=== PATIENT | female | born 1990 | race Caucasian/White ===

== ENCOUNTER → 2017-01-26 | Outpatient (CLI) | payer OTHER ==
--- NOTE | 2017-01-27 07:26 | RAD ---
Lumbar spine, 3 views, 01/26/2017: History: Lumbar pain The vertebral heights and intervertebral disc spaces are well-maintained. No fracture or dislocation is identified. The paraspinous soft tissues are unremarkable. IMPRESSION: No significant abnormality is detected.
== END | disposition home or self-care (01) ==
LOC: RAD 17:21
PROVIDERS: ATTEND Nurse Practitioner Family
DX: M54.5 Low back pain (principal)
CPT/HCPCS: 72100

== ENCOUNTER → 2017-02-03 | Outpatient (CLI) | payer OTHER ==
--- NOTE | 2017-02-03 13:54 | RAD ---
Bilateral breast ultrasound History: Multiple bilateral palpable breast nodules. Comparison: None. Findings: Ultrasound imaging was performed of both breasts by orthopedic radiologic technologist around the clock face. No solid or cystic masses are identified. Normal breast parenchyma is seen. Impression: Unremarkable bilateral breast ultrasound. No solid or cystic masses are identified. Recommend following ACR guidelines regarding institution of screening mammography. If patient is of average risk, screening mammography can commence at 40 years of age. BI-RADS CATEGORY: 1 NEGATIVE RECOMMENDED FOLLOW-UP: CLIN FOLLOW UP IMAGING CLINICALLY INDICATED
== END | disposition home or self-care (01) ==
LOC: US 13:09
PROVIDERS: ATTEND Nurse Practitioner Family
DX: N63 Unspecified lump in breast (principal)
CPT/HCPCS: 76641

== ENCOUNTER 2017-11-01 18:58 | Emergency (ER) | payer OTHER ==
[~2017-11-01] VITALS: Ht 157.5 cm; Wt 107.5 kg
[2017-11-01 19:51] LABS: U PREG PATIENT NEGATIVE (NEG)
[2017-11-01 20:25] LABS: BASO # 0.1 x10^3/uL (0.0-0.2); BASO % 1 % (0-3); EOS # 0.6 x10^3/uL (0.0-0.7); EOS % 6 % (0-3); HEMATOCRIT 39.1 % (36.0-47.0); HEMOGLOBIN 12.4 g/dL (12.0-15.5); LYMPH # 3.9 x10^3/uL (1.0-4.8); LYMPH % 34 % (24-48); MEAN CORPUSCULAR HEMOGLOBIN 25 pg (25-35); MEAN CORPUSCULAR HGB CONC 32 g/dL (31-37); MEAN CORPUSCULAR VOLUME 78 fL (79-100); MONO # 0.8 x10^3/uL (0.0-1.1); MONO % 7 % (0-9); NEUT # 6.1 x10^3uL (1.8-7.7); NEUT % 53 % (31-73); PLATELET COUNT 342 x10^3/uL (140-400); RED BLOOD COUNT 5.02 x10^6/uL (3.50-5.40); RED CELL DISTRIBUTION WIDTH 16.5 % (11.5-14.5); WHITE BLOOD COUNT 11.4 x10^3/uL (4.0-11.0)
[2017-11-01 20:26] LABS: CALCIUM 8.8 mg/dL (8.5-10.1); CREATININE 0.7 mg/dL (0.6-1.0); POTASSIUM 3.7 mmol/L (3.5-5.1)
[2017-11-01 20:28] LABS: AMPHETAMINE/METHAMPHETAMINE NEG (NEG); BARBITURATES NEG (NEG); BENZODIAZEPINES NEG (NEG); CANNABINOIDS POS (NEG); COCAINE NEG (NEG); METHADONE NEG (NEG); OPIATES NEG (NEG); PHENCYCLIDINE NEG (NEG)
[2017-11-01] MEDS ORDERED: ONDANSETRON PF 4 MG/2 ML VIAL. ONE (20:41)
[2017-11-01] MEDS ORDERED: ONDANSETRON PF 4 MG/2 ML VIAL. IV ONE (20:45)
[2017-11-01] MEDS ORDERED: HYDROcodone/APAP 7.5/325MG 1 TAB TABLET PO ONE (20:45)
--- NOTE | 2017-11-01 21:31 | RAD ---
Exam performed: CT scan of the head without contrast. Date of Service: 11/01/2017. Comparison: None available. Clinical History: Seizure. Headache, pain and pressure behind right eye patient is at seizure for several years. Technique: Helical acquisitions are obtained from the foramen magnum to the vertex without intravenous administration of contrast. Findings: The ventricles are midline without evidence of dilatation. Normal mattson-white differentiation is maintained. There is no extra axial fluid collection, intraparenchymal hemorrhage or mass lesion. The visualized portions of the orbits, paranasal sinuses and the mastoid air cells appear clear. The calvarium is intact. Impression: 1. No acute intracranial process detected. PQRS Compliance Statement: One or more of the following individualized dose reduction techniques were utilized for this examination: 1. Automated exposure control 2. Adjustment of the mA and/or kV according to patient size 3. Use of iterative reconstruction technique Electronically signed by: Silvia Shetty MD (11/01/2017 9:28 PM) [facility]
[2017-11-01 21:40] VITALS: BP 112/74
--- NOTE | 2017-11-01 21:43 | PHYS DOC ---
General Chief Complaint: SEIZURE Stated Complaint: LUCILA Time Seen by MD: 20:03 Source: patient, family Exam Limitations: no limitations Problems: History of Present Illness Initial Comments Patient is a 26-year-old female who comes to the ED complaining of seizure. Patient states that she was at work and "felt a seizure coming on" having a mild headache and laid down. She states that after laying down she had a seizure and called her boyfriend to come get her who brought her to the ED and left. Seizure was unwitnessed the patient did not lose control of her bowels or bladder and she describes no postictal symptoms. She denies any injuries no pain complaints no intraoral injuries. In the emergency department on my evaluation she is in no apparent distress she is completely alert and oriented no postictal behavior, she complains of a global mild throbbing headache and denies any focal neuro deficits. She states that she has had seizures in the past and used to follow with a neurologist, she also states that she has no history of CT evaluation. Her ED vital signs are normal and labs are drawn, CT performed as the patient states she has no history of CT in the past. Patient states that she takes no antiepileptic medications and does not follow with a neurologist. Timing/Duration: 1/2 hour Severity: severe Modifying Factors: improves with other Associated Symptoms: headaches, seizure Allergies: Coded Allergies: No Known Drug Allergies (Unverified , 11/01/17) Past Medical History Medical History: other (anxiety, bipolar disorder, depression, seizure) Surgical History: noncontributory Social History Smoker: non-smoker Alcohol: occasionally Drugs: marijuana Review of Systems Constitutional: denies chills, denies diaphoresis, denies fever, denies malaise EENTM: denies eye pain, denies ear pain, denies ear discharge, denies nose pain , denies throat pain, denies mouth pain Respiratory: denies cough, denies shortness of breath Cardiovascular: denies chest pain, denies palpitations Gastrointestinal: denies abdominal pain, denies nausea, denies vomiting Musculoskeletal: denies back pain, denies joint swelling, denies neck pain Psychiatric/Neurological: see HPI Physical Exam General Appearance: no apparent distress Eyes: bilateral eye normal inspection, bilateral eye PERRL, bilateral eye EOMI Ear, Nose, Throat: hearing grossly normal, normal ENT inspection, normal pharynx Neck: non-tender, supple Respiratory: normal breath sounds, no respiratory distress Cardiovascular: normal peripheral pulses, regular rate, rhythm Gastrointestinal: non tender, soft Back: no CVA tenderness, no vertebral tenderness Extremities: non-tender, normal inspection 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 PHYSICIAN: ELIZABETH VALENCIA DO REASON: SEIZURE, PAIN AND PRESSURE BEHIND RIGHT EYE, HEADACHE PROCEDURE: CT HEAD WO CONTRAST Exam performed: CT scan of the head without contrast. Date of Service: 11/01/2017. Comparison: None available. Clinical History: Seizure. Headache, pain and pressure behind right eye patient is at seizure for several years. Technique: Helical acquisitions are obtained from the foramen magnum to the vertex without intravenous administration of contrast. Findings: The ventricles are midline without evidence of dilatation. Normal mattson-white differentiation is maintained. There is no extra axial fluid collection, intraparenchymal hemorrhage or mass lesion. The visualized portions of the orbits, paranasal sinuses and the mastoid air cells appear clear. The calvarium is intact. Impression: 1. No acute intracranial process detected. RS Compliance Statement: One or more of the following individualized dose reduction techniques were utilized for this examination: 1. Automated exposure control 2. Adjustment of the mA and/or kV according to patient size 3. Use of iterative reconstruction technique Electronically signed by: Silvia Shetty MD (11/01/2017 9:28 PM) [facility] DICTATED AND SIGNED BY: SILVIA SHETTY MD DATE: 11/01/172125 CC: IFEOMA MCGEE APRN; ELIZABETH VALENCIA DO ~ White blood cells 11.4, lactic acid 0.7, urine drug screen positive for marijuana I'm very skeptical that this patient actually had a seizure. Her lactic acid is normal, she retained continence and has had no postictal behavior. Seizure in question was unwitnessed and EMS was not called but her boyfriend brought her in. No one present in the emergency department for me to speak with him except for the patient and her mother who was not there. I advised the patient that it was unlikely she had a seizure however given her report I'm less advise she not drive or operate machinery, no swimming alone or other activity which could put her in a compromise if she had a seizure until she was cleared by doctor. I advised her to follow-up with her PCP this week for recheck and possible MRI of the brain/outpatient neurology referral. I discussed signs and symptoms of monitor as well as indications for urgent return to the department. Patient questions were answered and she was expressed agreement and understanding of the treatment plan Departure Time of Disposition: 21:41 Disposition: 01 HOME, SELF-CARE Diagnosis: questionable recurrent seizure Condition: GOOD Patient Instructions: Seizure, Adult, [id number] Additional Instructions: As discussed, it is undetermined whether you actually had a seizure today or not. It is recommended that he not drive or operate machinery nor swim alone until cleared by your doctor. Follow-up with Brandy Mcgee tomorrow for recheck and to schedule outpatient neurologic evaluation. Work excuse through November 03. Return to ED with new or changing symptoms. ELIZABETH VALENCIA DO Nov 01, 2017 21:43
== END 2017-11-01 21:49 | disposition home or self-care (01) ==
LOC: ER 18:58
DX: R56.9 Unspecified convulsions (principal); F31.9 Bipolar disorder, unspecified; F41.9 Anxiety disorder, unspecified; F12.10 Cannabis abuse, uncomplicated
CPT/HCPCS: 36415; 70450; 80048; 80307; 81025; 83605; 85025; 96374; 99285; J2405; G0479

== ENCOUNTER 2017-11-05 09:41 | Emergency (ER) | payer OTHER ==
[~2017-11-05] VITALS: Ht 157.5 cm; Wt 108.9 kg
[2017-11-05 10:12] LABS: ALBUMIN 3.7 g/dL (3.4-5.0); ALBUMIN/GLOBULIN RATIO 0.9 (1.0-1.7); CALCIUM 8.9 mg/dL (8.5-10.1); CREATININE 0.7 mg/dL (0.6-1.0); GFR 101.1; POTASSIUM 4.1 mmol/L (3.5-5.1); TOTAL BILIRUBIN 0.2 mg/dL (0.2-1.0); TOTAL PROTEIN 7.8 g/dL (6.4-8.2)
[2017-11-05 10:17] LABS: BASO # 0.1 x10^3/uL (0.0-0.2); BASO % 1 % (0-3); EOS # 0.4 x10^3/uL (0.0-0.7); EOS % 4 % (0-3); HEMATOCRIT 37.9 % (36.0-47.0); HEMOGLOBIN 12.2 g/dL (12.0-15.5); LYMPH # 2.7 x10^3/uL (1.0-4.8); LYMPH % 31 % (24-48); MEAN CORPUSCULAR HEMOGLOBIN 25 pg (25-35); MEAN CORPUSCULAR HGB CONC 32 g/dL (31-37); MEAN CORPUSCULAR VOLUME 78 fL (79-100); MONO # 0.6 x10^3/uL (0.0-1.1); MONO % 6 % (0-9); NEUT % 57 % (31-73); PLATELET COUNT 327 x10^3/uL (140-400); RED BLOOD COUNT 4.87 x10^6/uL (3.50-5.40); RED CELL DISTRIBUTION WIDTH 16.3 % (11.5-14.5); WHITE BLOOD COUNT 8.7 x10^3/uL (4.0-11.0)
[2017-11-05 10:26] LABS: BILIRUBIN,URINE NEG (NEG); CLARITY,URINE CLEAR; COLOR,URINE YELLOW; GLUCOSE,URINE NEG (NEG); NITRITE,URINE NEG (NEG); RBC,URINE RARE /HPF (0-2); UROBILINOGEN,URINE 0.2 mg/dL (0.2 mg/dL)
[2017-11-05 10:27] LABS: AMPHETAMINE/METHAMPHETAMINE NEG (NEG); BACTERIA,URINE FEW /HPF (0-FEW); BARBITURATES NEG (NEG); BENZODIAZEPINES NEG (NEG); CANNABINOIDS POS (NEG); COCAINE NEG (NEG); METHADONE NEG (NEG); OPIATES NEG (NEG); PHENCYCLIDINE NEG (NEG); SQUAMOUS EPITHELIAL CELL,UR FEW /LPF; WBC,URINE 0 /HPF (0-4)
[2017-11-05 10:30] LABS: U PREG PATIENT NEGATIVE (NEG)
--- NOTE | 2017-11-05 11:01 | PHYS DOC ---
Past History Past Medical History: Seizure Additional Past Medical Histor: pseudoseizure Past Surgical History: Smoking: Non-smoker Alcohol Use: Occasionally Drug Use: None Adult General Chief Complaint Chief Complaint: SEIZURE HPI HPI 27-year-old male patient with history of pseudoseizure brought in by EMS because 2 episodes of seizures since this morning. Patient states she had several episodes of seizure during her 2 years ago and diagnosed with pseudoseizure. Patient states she did not have any episodes of seizure for couple years but for the last 2 weeks she had episodes of seizure the same as she had during her . 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 School staff reported that she did not have real seizure and EMS reported the patient did not have any seizure at their arrival. Patient mother- in-law states she was weakness her last seizure that last about 30 seconds with loss of consciousness and rolling her eyes back and shaking on her hands when she was sitting on a wheelchair. Patient was alert and oriented times arrival to ER without postictal condition. Patient denies using drugs or alcohol and having stress recently. Review of Systems Review of Systems Constitutional: Denies fever or chills [] Eyes: Denies change in visual acuity, redness, or eye pain [] HENT: Denies nasal congestion or sore throat [] Respiratory: Denies cough or shortness of breath [] Cardiovascular: No additional information not addressed in HPI [] GI: Denies abdominal pain, nausea, vomiting, bloody stools or diarrhea [] : Denies dysuria or hematuria [] Musculoskeletal: Denies back pain or joint pain [] Integument: Denies rash or skin lesions [] Neurologic: Denies headache, focal weakness or sensory changes , reports seizure [] Endocrine: Denies polyuria or polydipsia [] All other systems were reviewed and found to be within normal limits, except as documented in this note. Allergies Allergies Allergies Coded Allergies Type Severity Reaction Last Updated Verified No Known Drug Allergies 11/01/17 No Physical Exam Physical Exam Constitutional: Well developed, well nourished, no acute distress, non-toxic appearance. [] HENT: Normocephalic, atraumatic, bilateral external ears normal, oropharynx moist, no oral exudates, nose normal. [] Eyes: PERRLA, EOMI, conjunctiva normal, no discharge. [] Neck: Normal range of motion, no tenderness, supple, no stridor. [] Cardiovascular:Heart rate regular rhythm, no murmur [] Lungs & Thorax: Bilateral breath sounds clear to auscultation [] Abdomen: Bowel sounds normal, soft, no tenderness, no masses, no pulsatile masses. [] Skin: Warm, dry, no erythema, no rash. [] Back: No tenderness, no CVA tenderness. [] Extremities: No tenderness, no cyanosis, no clubbing, ROM intact, no edema. [] Neurologic: Alert and oriented X 3, normal motor function, normal sensory function, no focal deficits noted. [] Psychologic: Affect normal, judgement normal, mood normal. [] Current Patient Data Vital Signs Vital Signs Date Time Temp Pulse Resp B/P (MAP) Pulse Ox O2 Delivery O2 Flow Rate FiO2 11/05/17 10:57 66 18 115/66 (82) 100 11/05/17 10:13 Room Air 11/05/17 09:49 98.5 Lab Results Laboratory Tests Test 11/05/17 09:45 11/05/17 10:07 11/05/17 10:12 White Blood Count 8.7 x10^3/uL (4.0-11.0) Red Blood Count 4.87 x10^6/uL (3.50-5.40) Hemoglobin 12.2 g/dL (12.0-15.5) Hematocrit 37.9 % (36.0-47.0) Mean Corpuscular Volume 78 fL (79-100) L Mean Corpuscular Hemoglobin 25 pg (25-35) Mean Corpuscular Hemoglobin Concent 32 g/dL (31-37) Red Cell Distribution Width 16.3 % (11.5-14.5) H Platelet Count 327 x10^3/uL (140-400) Neutrophils (%) (Auto) 57 % (31-73) Lymphocytes (%) (Auto) 31 % (24-48) Monocytes (%) (Auto) 6 % (0-9) Eosinophils (%) (Auto) 4 % (0-3) H Basophils (%) (Auto) 1 % (0-3) Neutrophils # (Auto) 5.0 x10^3uL (1.8-7.7) Lymphocytes # (Auto) 2.7 x10^3/uL (1.0-4.8) Monocytes # (Auto) 0.6 x10^3/uL (0.0-1.1) Eosinophils # (Auto) 0.4 x10^3/uL (0.0-0.7) Basophils # (Auto) 0.1 x10^3/uL (0.0-0.2) Sodium Level 140 mmol/L (136-145) Potassium Level 4.1 mmol/L (3.5-5.1) Chloride Level 105 mmol/L (98-107) Carbon Dioxide Level 28 mmol/L (21-32) Anion Gap 7 (6-14) Blood Urea Nitrogen 14 mg/dL (7-20) Creatinine 0.7 mg/dL (0.6-1.0) Estimated GFR (Cockcroft-Gault) 101.1 BUN/Creatinine Ratio 20 (6-20) Glucose Level 91 mg/dL (70-99) Calcium Level 8.9 mg/dL (8.5-10.1) Total Bilirubin 0.2 mg/dL (0.2-1.0) Aspartate Amino Transferase (AST) 12 U/L (15-37) L Alanine Aminotransferase (ALT) 20 U/L (14-59) Alkaline Phosphatase 83 U/L (46-116) Total Protein 7.8 g/dL (6.4-8.2) Albumin 3.7 g/dL (3.4-5.0) Albumin/Globulin Ratio 0.9 (1.0-1.7) L Urine Collection Type Unknown Urine Color Yellow Urine Clarity Clear Urine pH 5.5 Urine Specific Gypsy 1.020 Urine Protein Neg (NEG-TRACE) Urine Glucose (UA) Neg mg/dL (NEG) Urine Ketones (Stick) Neg mg/dL (NEG) Urine Blood Neg (NEG) Urine Nitrite Neg (NEG) Urine Bilirubin Neg (NEG) Urine Urobilinogen Dipstick 0.2 mg/dL (0.2 mg/dL) Urine Leukocyte Esterase Neg (NEG) Urine RBC Rare /HPF (0-2) Urine WBC 0 /HPF (0-4) Urine Squamous Epithelial Cells Few /LPF Urine Bacteria Few /HPF (0-FEW) Urine Mucus Slight /LPF Urine Test Negative (NEG) Urine Opiates Screen Neg (NEG) Urine Methadone Screen Neg (NEG) Urine Barbiturates Neg (NEG) Urine Phencyclidine Screen Neg (NEG) Urine Amphetamine/Methamphetamine Neg (NEG) Urine Benzodiazepines Screen Neg (NEG) Urine Cocaine Screen Neg (NEG) Urine Cannabinoids Screen Pos (NEG) Urine Ethyl Alcohol Neg (NEG) POC Urine HCG, Qualitative hcg negative (Negative) EKG EKG [] Radiology/Procedures Radiology/Procedures [] Course & Med Decision Making Course & Med Decision Making Pertinent Labs reviewed. (See chart for details) Evaluation of patient in ER showed 27-year-old female patient with history of seizures brought in by EMS because 2 episodes of pseudoseizure disorder morning. Patient had unremarkable physical exam with a postictal condition. Labs was unremarkable. Patient instructed to follow with her neurologist in 2 or 2 days for more evaluation. Patient currently doesn't take any antiepileptic medication. Dragon Disclaimer Dragon Disclaimer This electronic medical record was generated, in whole or in part, using a voice recognition dictation system. Departure Departure: Impression: Primary Impression: Pseudoseizure Disposition: HOME, SELF-CARE (at 1100) Condition: IMPROVED Referrals: IFEOMA HAM APRN (PCP) JODY OWENS MD Patient Instructions: Nonepileptic Seizures Additional Instructions: Follow-up with your neurologist in 2 or 3 days Return to ER if not getting better CHITO LOPEZ MD Nov 05, 2017 11:01
[2017-11-05 11:04] VITALS: BP 128/95
== END 2017-11-05 11:08 | disposition home or self-care (01) ==
LOC: ER 09:41
DX: F44.5 Conversion disorder with seizures or convulsions (principal)
CPT/HCPCS: 36415; 80053; 80307; 81001; 81025; 85025; 99284; G0479

== ENCOUNTER → 2017-12-24 | Outpatient (CLI) | payer OTHER ==
--- NOTE | 2017-12-24 14:24 | RAD ---
Chest, 2 views, 12/24/2017: History: Back pain There is a mild right convexity midthoracic scoliosis. The vertebral heights are well-maintained. No fracture or dislocation is identified. The paraspinous soft tissues are unremarkable. IMPRESSION: 1. Mild thoracic scoliosis. 2. No acute abnormality is detected.
== END | disposition home or self-care (01) ==
LOC: DXRAD 11:30
PROVIDERS: ATTEND Nurse Practitioner Family
DX: M41.84 Other forms of scoliosis, thoracic region (principal)
CPT/HCPCS: 72072

== ENCOUNTER 2018-01-13 16:39 | Emergency (ER) | payer OTHER ==
[~2018-01-13] VITALS: Ht 157.5 cm; Wt 107.5 kg
[2018-01-13] MEDS ORDERED: IV NORMAL SALINE 1,000ML 1,000 ML IV SCH (17:14)
[2018-01-13] MEDS ORDERED: diphenhydrAMINE 50 MG/ML VIAL IVP ONE (17:30)
[2018-01-13] MEDS ORDERED: PROCHLORPERAZINE 10 MG/2 ML VIAL. IV ONE (17:30)
[2018-01-13 17:33] LABS: BASO # 0.1 x10^3/uL (0.0-0.2); BASO % 1 % (0-3); EOS # 0.4 x10^3/uL (0.0-0.7); EOS % 4 % (0-3); HEMATOCRIT 38.5 % (36.0-47.0); HEMOGLOBIN 12.2 g/dL (12.0-15.5); LYMPH % 27 % (24-48); MEAN CORPUSCULAR HEMOGLOBIN 25 pg (25-35); MEAN CORPUSCULAR HGB CONC 32 g/dL (31-37); MEAN CORPUSCULAR VOLUME 78 fL (79-100); MONO # 0.7 x10^3/uL (0.0-1.1); MONO % 6 % (0-9); NEUT % 62 % (31-73); PLATELET COUNT 354 x10^3/uL (140-400); RED BLOOD COUNT 4.94 x10^6/uL (3.50-5.40); RED CELL DISTRIBUTION WIDTH 15.4 % (11.5-14.5); WHITE BLOOD COUNT 11.2 x10^3/uL (4.0-11.0)
[2018-01-13 17:39] LABS: CALCIUM 9.2 mg/dL (8.5-10.1); CREATININE 0.8 mg/dL (0.6-1.0); GFR 86.7; POTASSIUM 3.8 mmol/L (3.5-5.1)
--- NOTE | 2018-01-13 18:02 | PHYS DOC ---
Past History Past Medical History: Migraines, Seizure Additional Past Medical Histor: pseudoseizure Past Surgical History: Smoking: Non-smoker Alcohol Use: Occasionally Drug Use: None Adult General Chief Complaint Chief Complaint: HEADACHE HPI HPI Patient is a 27 year old female who presents with complaint of migraine headache. Patient states her symptoms have been present over the past 2 days. Patient has history of seizure disorder and follows with Dr. Lara of neurology. The patient was instructed to come to the emergency department for evaluation due to her migraine headache. Patient states that she has not taken any medications for her symptoms. Patient states that the symptoms are typical with previous migraine headaches. Patient denies any fever. Patient does have photosensitivity and nausea associated with symptoms. Patient denies any focal neurologic deficits. Review of Systems Review of Systems Constitutional: Denies fever or chills [] Eyes: Denies change in visual acuity, redness, or eye pain [] HENT: Denies nasal congestion or sore throat [] Respiratory: Denies cough or shortness of breath [] Cardiovascular: Denies chest pain or edema[] GI: Nausea, denies abdominal pain, vomiting, bloody stools or diarrhea [] : Denies dysuria or hematuria [] Musculoskeletal: Denies back pain or joint pain [] Integument: Denies rash or skin lesions [] Neurologic: Headache, photophobia, denies focal weakness or sensory changes [] All other systems were reviewed and found to be within normal limits, except as documented in this note. Current Medications Current Medications Current Medications Medications (Trade) Dose Ordered Sig/Jenni Start Time Stop Time Status Last Admin Dose Admin Diphenhydramine HCl (Benadryl) 25 mg 1X ONCE 01/13/18 17:30 01/13/18 17:31 DC 01/13/18 17:26 25 MG Fentanyl Citrate (Fentanyl 2ml Vial) 50 mcg 1X ONCE 01/13/18 17:30 01/13/18 17:31 DC 01/13/18 17:26 50 MCG Prochlorperazine Edisylate (Compazine) 10 mg 1X ONCE 01/13/18 17:30 01/13/18 17:31 DC 01/13/18 17:26 10 MG Sodium Chloride 1,000 ml @ 1,000 mls/hr Q1H 01/13/18 17:14 4/5/18 18:13 01/13/18 17:26 1,000 MLS/HR Allergies Allergies Allergies Coded Allergies Type Severity Reaction Last Updated Verified No Known Drug Allergies 11/01/17 No Physical Exam Physical Exam Constitutional: Alert, afebrile, appears in moderate discomfort. [] HENT: Normocephalic, atraumatic, bilateral external ears normal, oropharynx moist, no oral exudates, nose normal. [] Eyes: PERRLA, EOMI, photophobia present, conjunctiva normal, no discharge. [] Neck: Normal range of motion, no tenderness, supple, no stridor. [] Cardiovascular:Heart rate regular rhythm, no murmur [] Lungs & Thorax: Bilateral breath sounds clear to auscultation [] Abdomen: Bowel sounds normal, soft, no tenderness, no masses, no pulsatile masses. [] Skin: Warm, dry, no erythema, no rash. [] Back: No tenderness, no CVA tenderness. [] Extremities: No tenderness, no cyanosis, no clubbing, ROM intact, no edema. [] Neurologic: Alert and oriented X 3, normal motor function, normal sensory function, no focal deficits noted. [] Current Patient Data Vital Signs Vital Signs Date Time Temp Pulse Resp B/P (MAP) Pulse Ox O2 Delivery O2 Flow Rate FiO2 01/13/18 17:50 63 18 121/67 (85) 98 Room Air 01/13/18 16:49 98.1 Lab Results Laboratory Tests Test 01/13/18 17:19 White Blood Count 11.2 x10^3/uL (4.0-11.0) H Red Blood Count 4.94 x10^6/uL (3.50-5.40) Hemoglobin 12.2 g/dL (12.0-15.5) Hematocrit 38.5 % (36.0-47.0) Mean Corpuscular Volume 78 fL (79-100) L Mean Corpuscular Hemoglobin 25 pg (25-35) Mean Corpuscular Hemoglobin Concent 32 g/dL (31-37) Red Cell Distribution Width 15.4 % (11.5-14.5) H Platelet Count 354 x10^3/uL (140-400) Neutrophils (%) (Auto) 62 % (31-73) Lymphocytes (%) (Auto) 27 % (24-48) Monocytes (%) (Auto) 6 % (0-9) Eosinophils (%) (Auto) 4 % (0-3) H Basophils (%) (Auto) 1 % (0-3) Neutrophils # (Auto) 7.0 x10^3uL (1.8-7.7) Lymphocytes # (Auto) 3.0 x10^3/uL (1.0-4.8) Monocytes # (Auto) 0.7 x10^3/uL (0.0-1.1) Eosinophils # (Auto) 0.4 x10^3/uL (0.0-0.7) Basophils # (Auto) 0.1 x10^3/uL (0.0-0.2) Sodium Level 141 mmol/L (136-145) Potassium Level 3.8 mmol/L (3.5-5.1) Chloride Level 103 mmol/L (98-107) Carbon Dioxide Level 28 mmol/L (21-32) Anion Gap 10 (6-14) Blood Urea Nitrogen 14 mg/dL (7-20) Creatinine 0.8 mg/dL (0.6-1.0) Estimated GFR (Cockcroft-Gault) 86.7 Glucose Level 84 mg/dL (70-99) Calcium Level 9.2 mg/dL (8.5-10.1) Magnesium Level 2.0 mg/dL (1.8-2.4) EKG EKG Not performed[] Radiology/Procedures Radiology/Procedures Not performed[] Course & Med Decision Making Course & Med Decision Making Pertinent Labs and Imaging studies reviewed. (See chart for details) Patient was given IV fluids, Compazine, Benadryl, and IV fentanyl. At time of sign out, lab work pending. Patient does report improvement in symptoms. Patient care was signed out to Dr. Weeks at 181. TALISHA Pan attending note Dr. Bubba Weeks. Care assumed by me at [address] Goncalves. On reevaluation at 1950 patient well-appearing smiling and comfortable. Full neurologic exam is completely benign. Supple neck. No further workup or treatment is indicated patient and family agree with outpatient follow-up and strict return precautions given Dragon Disclaimer Dragon Disclaimer This electronic medical record was generated, in whole or in part, using a voice recognition dictation system. Departure Departure: Impression: Primary Impression: Migraine Disposition: HOME, SELF-CARE Condition: GOOD Referrals: IFEOMA HAM APRN (PCP) Patient Instructions: Migraine Headache Additional Instructions: You've been suffering from migraine headache. Rest and drink plenty of fluids. Take ibuprofen 800 mg every 6 hours and Tylenol every 4 hours as needed for any continued discomfort. Follow-up with your doctor tomorrow and return immediately for new severe, or worsening symptoms ESA GONCALVES MD Jan 13, 2018 18:02 BUBBA WEEKS MD Jan 13, 2018 19:55
[2018-01-13 18:55] LABS: AMPHETAMINE/METHAMPHETAMINE NEG (NEG); BARBITURATES NEG (NEG); BENZODIAZEPINES NEG (NEG); CANNABINOIDS POS (NEG); COCAINE NEG (NEG); METHADONE NEG (NEG); OPIATES NEG (NEG); PHENCYCLIDINE NEG (NEG)
[2018-01-13 19:02] LABS: CLARITY,URINE CLEAR; COLOR,URINE YELLOW; GLUCOSE,URINE NEG (NEG)
[2018-01-13 19:03] LABS: BACTERIA,URINE 0 /HPF (0-FEW); BILIRUBIN,URINE NEG (NEG); NITRITE,URINE NEG (NEG); RBC,URINE RARE /HPF (0-2); SQUAMOUS EPITHELIAL CELL,UR FEW /LPF; UROBILINOGEN,URINE 0.2 mg/dL (0.2 mg/dL); WBC,URINE OCC /HPF (0-4)
[2018-01-13 20:09] VITALS: BP 121/78
== END 2018-01-13 20:10 | disposition home or self-care (01) ==
LOC: ER 16:39
DX: G43.909 Migraine, unspecified, not intractable, without status migrainosus (principal); G40.909 Epilepsy, unspecified, not intractable, without status epilepticus
CPT/HCPCS: 36415; 80048; 80307; 81001; 81025; 83735; 85025; 96361; 96374; 96375; 99284; J0780; J1200; J3010; G0479; J7030

== ENCOUNTER 2018-02-23 19:15 | Inpatient (IN) | payer OTHER ==
[~2018-02-23] VITALS: Ht 170.2 cm; Wt 109.8 kg
[2018-02-23] MEDS ORDERED: IV NORMAL SALINE 1,000ML 1,000 ML IV SCH (19:19)
--- NOTE | 2018-02-23 19:39 | EKG ---
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
[2018-02-23 19:52] LABS: BASO # 0.1 x10^3/uL (0.0-0.2); BASO % 1 % (0-3); EOS # 0.3 x10^3/uL (0.0-0.7); EOS % 3 % (0-3); HEMOGLOBIN 12.4 g/dL (12.0-15.5); LYMPH # 2.9 x10^3/uL (1.0-4.8); LYMPH % 29 % (24-48); MEAN CORPUSCULAR HEMOGLOBIN 25 pg (25-35); MEAN CORPUSCULAR HGB CONC 33 g/dL (31-37); MEAN CORPUSCULAR VOLUME 78 fL (79-100); MONO # 0.8 x10^3/uL (0.0-1.1); MONO % 8 % (0-9); NEUT # 5.9 x10^3uL (1.8-7.7); NEUT % 59 % (31-73); PLATELET COUNT 353 x10^3/uL (140-400); RED CELL DISTRIBUTION WIDTH 15.6 % (11.5-14.5)
[2018-02-23 20:02] LABS: AMPHETAMINE/METHAMPHETAMINE NEG (NEG); BARBITURATES NEG (NEG); BENZODIAZEPINES NEG (NEG); CANNABINOIDS POS (NEG); COCAINE NEG (NEG); METHADONE NEG (NEG); OPIATES POS (NEG); PHENCYCLIDINE NEG (NEG)
[2018-02-23 20:05] LABS: ALBUMIN 3.8 g/dL (3.4-5.0); CALCIUM 8.6 mg/dL (8.5-10.1); CREATININE 0.9 mg/dL (0.6-1.0); DIRECT BILIRUBIN 0.1 mg/dL (0.0-0.2); GFR 75.7; POTASSIUM 3.3 mmol/L (3.5-5.1); TOTAL PROTEIN 7.8 g/dL (6.4-8.2)
[2018-02-23 20:07] LABS: ACETAMIN 13.8 mcg/mL (10-30); SALIC 2.3 mg/dL (2.8-20.0)
--- NOTE | 2018-02-23 20:16 | PHYS DOC ---
Past History Past Medical History: Anxiety, Migraines, Seizure Additional Past Medical Histor: pseudoseizure Past Surgical History: Smoking: Non-smoker Alcohol Use: Occasionally Drug Use: Marijuana Social History Narrative: Marijuana in last 48 hours Adult General Chief Complaint Chief Complaint: OVERDOSE HPI HPI Patient is a 27 year old female who presents with complaint of intentional drug overdose area patient states that she took approximately #30 fluoxetine tablets and #5 [place]-5 tablets approximately 1 hour prior to arrival and attempt to try to kill herself. Patient states she is currently suffering from depression and is still having suicidal thoughts. Patient states that currently she feels very sleepy but denies any other symptoms at this time. Patient brought to the emergency department by EMS after family discovered what she had done and called 911. The patient states that she is wanting to seek help for her depression. Patient denies any pain or other discomfort. Review of Systems Review of Systems Constitutional: Lethargy, denies fever or chills [] Eyes: Denies change in visual acuity, redness, or eye pain [] HENT: Denies nasal congestion or sore throat [] Respiratory: Denies cough or shortness of breath [] Cardiovascular: Denies chest pain or edema[] GI: Denies abdominal pain, nausea, vomiting, bloody stools or diarrhea [] : Denies dysuria or hematuria [] Musculoskeletal: Denies back pain or joint pain [] Integument: Denies rash or skin lesions [] Neurologic: Denies headache, focal weakness or sensory changes [] All other systems were reviewed and found to be within normal limits, except as documented in this note. Current Medications Current Medications Current Medications Medications (Trade) Dose Ordered Sig/Jenni Start Time Stop Time Status Last Admin Dose Admin Sodium Chloride 1,000 ml @ 1,000 mls/hr Q1H 02/23/18 19:19 02/23/18 20:18 02/23/18 20:03 1,000 MLS/HR Allergies Allergies Allergies Coded Allergies Type Severity Reaction Last Updated Verified No Known Drug Allergies 11/01/17 No Physical Exam Physical Exam Constitutional: Drowsy, afebrile, no acute distress. [] HENT: Normocephalic, atraumatic, bilateral external ears normal, oropharynx moist, no oral exudates, nose normal. [] Eyes: PERRLA, EOMI, conjunctiva normal, no discharge. [] Neck: Normal range of motion, no tenderness, supple, no stridor. [] Cardiovascular:Heart rate regular rhythm, no murmur [] Lungs & Thorax: Bilateral breath sounds clear to auscultation [] Abdomen: Bowel sounds normal, soft, no tenderness, no masses, no pulsatile masses. [] Skin: Warm, dry, no erythema, no rash. [] Back: No tenderness, no CVA tenderness. [] Extremities: No tenderness, no cyanosis, no clubbing, ROM intact, no edema. [] Neurologic: Delayed verbal responses, oriented 3, normal motor function, normal sensory function, no focal deficits noted. [] Psychologic: Affect flat, judgement normal, mood depressed. [] Current Patient Data Vital Signs Vital Signs Date Time Temp Pulse Resp B/P (MAP) Pulse Ox O2 Delivery O2 Flow Rate FiO2 02/23/18 19:17 98.7 77 18 99 Room Air Lab Results Laboratory Tests Test 02/23/18 19:25 02/23/18 19:40 White Blood Count 10.0 x10^3/uL (4.0-11.0) Red Blood Count 4.90 x10^6/uL (3.50-5.40) Hemoglobin 12.4 g/dL (12.0-15.5) Hematocrit 38.0 % (36.0-47.0) Mean Corpuscular Volume 78 fL (79-100) L Mean Corpuscular Hemoglobin 25 pg (25-35) Mean Corpuscular Hemoglobin Concent 33 g/dL (31-37) Red Cell Distribution Width 15.6 % (11.5-14.5) H Platelet Count 353 x10^3/uL (140-400) Neutrophils (%) (Auto) 59 % (31-73) Lymphocytes (%) (Auto) 29 % (24-48) Monocytes (%) (Auto) 8 % (0-9) Eosinophils (%) (Auto) 3 % (0-3) Basophils (%) (Auto) 1 % (0-3) Neutrophils # (Auto) 5.9 x10^3uL (1.8-7.7) Lymphocytes # (Auto) 2.9 x10^3/uL (1.0-4.8) Monocytes # (Auto) 0.8 x10^3/uL (0.0-1.1) Eosinophils # (Auto) 0.3 x10^3/uL (0.0-0.7) Basophils # (Auto) 0.1 x10^3/uL (0.0-0.2) Sodium Level 141 mmol/L (136-145) Potassium Level 3.3 mmol/L (3.5-5.1) L Chloride Level 103 mmol/L (98-107) Carbon Dioxide Level 26 mmol/L (21-32) Anion Gap 12 (6-14) Blood Urea Nitrogen 14 mg/dL (7-20) Creatinine 0.9 mg/dL (0.6-1.0) Estimated GFR (Cockcroft-Gault) 75.7 Glucose Level 123 mg/dL (70-99) H Calcium Level 8.6 mg/dL (8.5-10.1) Magnesium Level 2.0 mg/dL (1.8-2.4) Total Bilirubin Pending Direct Bilirubin 0.1 mg/dL (0.0-0.2) Aspartate Amino Transferase (AST) 13 U/L (15-37) L Alanine Aminotransferase (ALT) 23 U/L (14-59) Alkaline Phosphatase 89 U/L (46-116) Total Protein 7.8 g/dL (6.4-8.2) Albumin 3.8 g/dL (3.4-5.0) Salicylates Level 2.3 mg/dL (2.8-20.0) L Salicylate Last Dose Date 02/23/18 Salicylate Last Dose Time 1800 Acetaminophen Level 13.8 mcg/mL (10-30) Acetaminophen Last Dose Date 02/23/18 Acetaminophen Last Dose Time 1800 Ethyl Alcohol Level < 10 mg/dL (0-10) Urine Opiates Screen Pos (NEG) Urine Methadone Screen Neg (NEG) Urine Barbiturates Neg (NEG) Urine Phencyclidine Screen Neg (NEG) Urine Amphetamine/Methamphetamine Neg (NEG) Urine Benzodiazepines Screen Neg (NEG) Urine Cocaine Screen Neg (NEG) Urine Cannabinoids Screen Pos (NEG) Urine Ethyl Alcohol Neg (NEG) EKG EKG Interpreted by me: Heart rate 70, sinus rhythm, normal intervals, normal axis, no acute ST/T-wave abnormalities present[] Radiology/Procedures Radiology/Procedures Not performed[] Course & Med Decision Making Course & Med Decision Making Pertinent Labs and Imaging studies reviewed. (See chart for details) Poison control was contacted upon arrival to the emergency department. They recommended serial EKGs every 2 hours over the next 10 hours on the patient, a 4 hour Tylenol level, and supportive care at this time. The patient will be admitted for medical clearance from her potential toxic ingestion. I spoke with Dr. Mondragon who accepted care patient in hospital. Dragon Disclaimer Dragon Disclaimer This electronic medical record was generated, in whole or in part, using a voice recognition dictation system. Departure Departure: Impression: Primary Impression: Intentional drug overdose Additional Impression: Suicidal ideation Disposition: ADMITTED INPATIENT Admitting Physician: Albert Mondragon Condition: GUARDED Referrals: IFEOMA HAM APRN (PCP) Problem Qualifiers Primary Impression: Intentional drug overdose Encounter type: initial encounter Qualified Codes: T50.902A - Poisoning by unspecified drugs, medicaments and biological substances, intentional self-harm , initial encounter ESA GONCALVES MD February 23, 2018 20:16
[2018-02-23 20:29] LABS: BACTERIA,URINE 0 /HPF (0-FEW); BILIRUBIN,URINE NEG (NEG); CLARITY,URINE HAZY; COLOR,URINE YELLOW; GLUCOSE,URINE NEG (NEG); NITRITE,URINE NEG (NEG); SQUAMOUS EPITHELIAL CELL,UR MOD /LPF; UROBILINOGEN,URINE 0.2 mg/dL (0.2 mg/dL)
[2018-02-23 20:30] LABS: HYALINE CASTS, URINE FEW /HPF
[2018-02-23 20:33] LABS: U PREG PATIENT NEGATIVE (NEG)
[2018-02-23 20:38] LABS: TOTAL BILIRUBIN 0.2 mg/dL (0.2-1.0)
[2018-02-23] MEDS ORDERED: ONDANSETRON PF 4 MG/2 ML VIAL. IV PRN (21:15)
[2018-02-23 22:15] VITALS: BP 134/78
--- NOTE | 2018-02-23 22:18 | EKG ---
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
[2018-02-23] MEDS: IV NORMAL SALINE 1,000ML 1,000 ML IV SCH (22:40)
[2018-02-23 22:46] LABS: ACETAMIN 8.3 mcg/mL (10-30)
[2018-02-23 23:00] VITALS: BP 123/64
[2018-02-24] VITALS (17 sets, daily range): BP systolic 107–146; BP diastolic 54–83
[2018-02-24] MEDS ORDERED: HYDR-971 PO (00:19)
[2018-02-24] MEDS ORDERED: CYCL-331 PO (00:19)
[2018-02-24] MEDS ORDERED: FLUO40CA2 PO (00:19)
--- NOTE | 2018-02-24 06:05 | EKG ---
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
[2018-02-24 06:39] LABS: BASO # 0.1 x10^3/uL (0.0-0.2); BASO % 1 % (0-3); EOS # 0.3 x10^3/uL (0.0-0.7); EOS % 4 % (0-3); HEMATOCRIT 35.8 % (36.0-47.0); HEMOGLOBIN 11.6 g/dL (12.0-15.5); LYMPH # 3.5 x10^3/uL (1.0-4.8); LYMPH % 40 % (24-48); MEAN CORPUSCULAR HEMOGLOBIN 25 pg (25-35); MEAN CORPUSCULAR HGB CONC 32 g/dL (31-37); MEAN CORPUSCULAR VOLUME 78 fL (79-100); MONO # 0.7 x10^3/uL (0.0-1.1); MONO % 8 % (0-9); NEUT # 4.2 x10^3uL (1.8-7.7); NEUT % 47 % (31-73); PLATELET COUNT 328 x10^3/uL (140-400); RED BLOOD COUNT 4.57 x10^6/uL (3.50-5.40); RED CELL DISTRIBUTION WIDTH 15.9 % (11.5-14.5); WHITE BLOOD COUNT 8.8 x10^3/uL (4.0-11.0)
[2018-02-24 06:52] LABS: CALCIUM 8.2 mg/dL (8.5-10.1); CREATININE 0.7 mg/dL (0.6-1.0); GFR 101.1; POTASSIUM 4.1 mmol/L (3.5-5.1)
[2018-02-24 07:16] LABS: ACETAMIN < 2 mcg/mL (10-30)
[2018-02-24] MEDS: IV NORMAL SALINE 1,000ML 1,000 ML IV SCH ×2 (09:01→18:40)
[2018-02-24] MEDS: ONDANSETRON ODT 4 MG TAB.RAPDIS PO PRN (19:09)
--- NOTE | 2018-02-24 19:39 | HP ---
ADMIT DATE: 02/23/2018 HISTORY OF PRESENT ILLNESS: The patient is a 27-year-old female patient who presented to the Emergency Room with a complaint of intentional drug overdose. The patient stated that she took approximately 30 fluoxetine tablets and five [place] 5 mg approximately an hour before arrival, an attempt to try to kill herself. The patient stated that she is currently suffering from depression and is still having suicidal thoughts. The patient states that currently, she feels very sleepy, but denies any other symptoms at the time. She was brought to the Emergency Room by EMS after family discovered what she had done and called 911. The patient stated that she is wanting to seek help for her depression, but denied any pain or other discomfort. PAST MEDICAL HISTORY: Significant for anxiety, migraine headache, and seizures as well as pseudoseizures. PAST SURGICAL HISTORY: Significant for . The Poison Control Center was contacted and their recommendation was to admit her, to do serial EKGs to make sure that there is no evidence of prolongation of QT interval. FAMILY HISTORY: Unremarkable. SOCIAL HISTORY: She does not smoke, drinks alcohol occasionally, and used marijuana in the last 48 hours. PHYSICAL EXAMINATION: GENERAL: On arrival to the Emergency Room, the patient looked well and was clearly in no apparent respiratory distress, no pallor, jaundice, cyanosis, or thyromegaly. No jugular venous distension. No lower limb edema. VITAL SIGNS: Her heart rate was 77, blood pressure was 134/78, temperature was 98.2, respiratory rate was 18 and oxygen saturation was 99%. HEAD, EYES, EARS, NOSE, AND THROAT: Showed normocephalic, atraumatic. NECK: Supple. HEART: Showed normal first and second heart sounds. No gallop, rub or murmur. CHEST: Clear to auscultation. No crepitation or rhonchi. ABDOMEN: Distended, soft, and nontender. No guarding or rigidity. No organomegaly. Hernial orifice intact. Bowel sounds normal. NEUROLOGIC: She is awake, alert, responding appropriately. Cranial nerves intact. EXTREMITIES: She moves extremities without difficulty. PSYCHOLOGICAL: Her affect is flat. Judgment was normal. Her mood was depressed. LABORATORY DATA: While in the Emergency Room, she has had lab work done, which showed that her white cell count was 10,000, hemoglobin 12.4, hematocrit 38, MCV 78, and platelet count of 353,000. Her chemistry showed a serum sodium 141, potassium 3.3, chloride 103, bicarbonate 26, anion gap 12, BUN 14, creatinine 0.9, estimated GFR was 75.7 mL per minute. Her glucose 123, calcium was 8.6, magnesium 2. Total bilirubin, AST, ALT, alkaline phosphatase were normal. Her total protein was 7.8, albumin was 3.8. Urinalysis was essentially unremarkable. Urine test was negative. Toxic screen showed that her acetaminophen was high at 13.8; however, the four-hour value was down to 8.3. Toxic screen was positive for opiates and cannabinoids. ASSESSMENT AND PLAN: The patient was admitted to the Intensive Care Unit with the following diagnoses, intentional drug overdose, suicidal ideation. Once she is medically stable, we will get the [facility] to be screened to see whether she can be discharged safely home or needs an inpatient psychiatric stabilization. CELIA GOMES MD DR: FRANCK/cassie JOB#: [id number] / [id number]
--- NOTE | 2018-02-24 23:44 | PN ---
DATE: 02/24/2018 SUBJECTIVE: The patient is sitting comfortably in bed in no apparent respiratory distress. Denied any complaint. We [facility] who screened her and recommended inpatient psychiatric stabilization. OBJECTIVE: GENERAL: On examining her, she looked well and was clearly in no apparent respiratory distress, pale, but no jaundice, cyanosis, or thyromegaly. No jugular venous distension. No lower limb edema. VITAL SIGNS: Her heart rate was 60, blood pressure was 116/67, temperature was 98, respiratory rate was 16, and oxygen saturation was 97% on room air. The rest of clinical exam is stable, has not really changed. LABORATORY DATA: Her white cell count was 8800, hemoglobin 11.6, hematocrit 35.8, MCV 78, and platelet count of 328,000. Her chemistry showed a serum sodium 141, potassium 4.1, chloride 106, bicarbonate 28, anion gap of 7, BUN 9, creatinine 0.7, estimated GFR was 101, glucose 93, and calcium was 8.2. ASSESSMENT: Intentional overdose, the [facility] screened the patient and recommended inpatient psychiatric stabilization. Paper work was sent to [facility] and we will discharge her once she is accepted. CELIA GOMES MD DR: FRANCK/cassie JOB#: [id number] / [id number]
[2018-02-25] VITALS (17 sets, daily range): BP systolic 101–142; BP diastolic 51–85
[2018-02-25] MEDS: IV NORMAL SALINE 1,000ML 1,000 ML IV SCH ×2 (04:20→16:05)
[2018-02-25] MEDS: ONDANSETRON ODT 4 MG TAB.RAPDIS PO PRN (12:52)
[2018-02-25] MEDS ORDERED: ALPRAZolam 0.25 MG TABLET PO PRN (15:15)
--- NOTE | 2018-02-25 20:46 | DS ---
DATE OF DISCHARGE: 02/25/2018 HOSPITAL COURSE: The patient is a 27-year-old female patient, who came to the Emergency Room and was admitted with intentional drug overdose, suicidal ideation and [facility] was consulted and came and screened her for inpatient psychiatric stabilization. Unfortunately, this is a voluntary decision and we have been attempting to find a place for her in multiple places including [facility] and none of these units have beds available and the patient, herself expressed her unwillingness to go voluntarily and therefore a decision was made to discharge her home to follow with the [facility] on Wednesday. I am not really familiar with the legal system, but according to our rn social services as long as she refuses involuntary commitment she has right to live and therefore given difficulty in placing her and unwillingness to go for entirely, a decision was made to discharge her today. PHYSICAL EXAMINATION: GENERAL: When I saw her this afternoon, she looked well and was clearly in no apparent respiratory distress. She was pale. There is no pallor, jaundice, cyanosis, or thyromegaly. No jugular venous distension. No lower limb edema. VITAL SIGNS: Her heart rate was 64, blood pressure 142/70, temperature 98.1, respiratory rate 20, and oxygen saturation was 98%. HEAD, EYES, EARS, NOSE AND THROAT: Normocephalic, atraumatic. NECK: Supple. HEART: Showed normal first and second heart sounds with no gallop, rub or murmur. CHEST: Clear to auscultation. No crepitation or rhonchi. ABDOMEN: Distended, soft, nontender. No guarding or rigidity. No organomegaly. All hernial orifice intact. Bowel sounds normal. NEUROLOGIC: She was awake, alert, responding appropriately. Cranial nerves intact. EXTREMITIES: She moves extremities without difficulty. She ambulates without assistance or assistive devices. LABORATORY DATA: Showed white cell count of 8800, hemoglobin 12, hematocrit 36, MCV 78 and platelet count of 328,000. Her serum sodium 141, potassium 4.1, chloride 106, bicarbonate 28, anion gap of 7, BUN 9, creatinine 0.7, estimated GFR was 101, glucose 93 and calcium was 8.2. DISCHARGE MEDICATIONS: She was discharged to continue on her Flexeril, fluoxetine, and hydrocodone. Although according to her therefore she was advised to not to take any of these medications until go to [facility] on Wednesday on Wednesday morning. CELIA GOMES MD DR: FRANCK/cassie JOB#: [id number] / [id number]
== END 2018-02-25 19:56 | disposition home or self-care (01) | DRG 918 ==
LOC: ER 19:15 → ICU 20:59
PROVIDERS: ADMIT Internal Medicine; ATTEND Internal Medicine
DX: T43.222A Poisoning by selective serotonin reuptake inhibitors, intentional self-harm, initial encounter (principal); F32.9 Major depressive disorder, single episode, unspecified; F41.9 Anxiety disorder, unspecified; G43.909 Migraine, unspecified, not intractable, without status migrainosus; Y92.89 Other specified places as the place of occurrence of the external cause
CPT/HCPCS: 36415; 80048; 80076; 80307; 81001; 81025; 83735; 85025; 87086; 87641; 93005; 96360; G0480; J2405; Q0162; 99285-25; G0479; J7030

== ENCOUNTER 2021-04-26 14:52 | Emergency (ER) | payer OTHER ==
[~2021-04-26] VITALS: Ht 157.5 cm; Wt 130.6 kg
[~2021-04-26 14:52] MED LIST: CYCL-331 PO; FLUO40CA2 PO; HYDR-3165 PO
[2021-04-26 15:05] VITALS: BP 120/60
--- NOTE | 2021-04-26 15:26 | PHYS DOC ---
Past History Past Medical History: Anxiety, Migraines, Seizure Additional Past Medical Histor: pseudoseizure Past Surgical History: Smoking: Non-smoker Alcohol Use: Occasionally Drug Use: Marijuana General Adult EDM: Chief Complaint: ANKLE PROBLEM HPI: HPI: 30-year-old female presents with right lateral ankle pain. The patient hurt her ankle over a week ago. She was walking around in "crocs" and as she walked, her foot rotated medially. She presents today because she still has swelling and pain. She wants to make sure is not broken. She has been able to walk but it is painful. She denies any other injuries or complaints at this time. Review of Systems: Review of Systems: Constitutional: Denies fever or chills Eyes: Denies change in visual acuity HENT: Denies nasal congestion or sore throat Respiratory: Denies cough or shortness of breath Cardiovascular: Denies chest pain or edema GI: Denies abdominal pain, nausea, vomiting, bloody stools or diarrhea : Denies dysuria Musculoskeletal: Right ankle pain Integument: Denies rash Neurologic: Denies headache, focal weakness or sensory changes Endocrine: Denies polyuria or polydipsia Lymphatic: Denies swollen glands Psychiatric: Denies depression or anxiety Allergies: Allergies: Allergies Coded Allergies Type Severity Reaction Last Updated Verified No Known Drug Allergies 11/01/17 No Physical Exam: PE: Constitutional: Well developed, well nourished, morbidly obese, no acute distress, non-toxic appearance. [] HENT: Normocephalic, atraumatic, bilateral external ears normal, oropharynx moist, no oral exudates, nose normal. [] Eyes: PERRLA, EOMI, conjunctiva normal, no discharge. [] Neck: Normal range of motion, no tenderness, supple, no stridor. [] Cardiovascular:Heart rate regular rhythm, no murmur [] Lungs & Thorax: Bilateral breath sounds clear to auscultation [] Abdomen: Bowel sounds normal, soft, no tenderness, no masses, no pulsatile masses. [] Skin: Warm, dry, no erythema, no rash. [] Back: No tenderness, no CVA tenderness. [] Extremities: Tenderness of the right lateral ankle inferior to the lateral malleolus and anterior to the lateral malleolus. Mild swelling. [] Neurologic: Alert and oriented X 3, normal motor function, normal sensory function, no focal deficits noted. [] Psychologic: Affect normal, judgement normal, mood normal. [] Current Patient Data: Vital Signs: Vital Signs Date Time Temp Pulse Resp B/P (MAP) Pulse Ox O2 Delivery O2 Flow Rate FiO2 04/26/21 15:05 97.9 71 20 120/60 96 Room Air EKG: EKG: [] Radiology/Procedures: Radiology/Procedures: [] Heart Score: C/O Chest Pain: N/A Risk Factors: Risk Factors: DM, Current or recent (<one month) smoker, HTN, HLP, family history of CAD, obesity. Risk Scores: Score 0 - 3: 2.5% MACE over next 6 weeks - Discharge Home Score 4 - 6: 20.3% MACE over next 6 weeks - Admit for Clinical Observation Score 7 - 10: 72.7% MACE over next 6 weeks - Early Invasive Strategies Course & Med Decision Making: Course & Med Decision Making Pertinent Labs and Imaging studies reviewed. (See chart for details) The patient's x-ray is negative for fracture. We will place her in a stirrup splint. She is stable for discharge at this time. [] Dragon Disclaimer: Dragon Disclaimer: This electronic medical record was generated, in whole or in part, using a voice recognition dictation system. Departure Departure: Impression: Primary Impression: Severe sprain of right ankle Qualified Codes: S93.401A - Sprain of unspecified ligament of right ankle, initial encounter Disposition: HOME / SELF CARE / HOMELESS Condition: STABLE Referrals: SARAI CISNEROS DO (PCP) Patient Instructions: Ankle Sprain, Acute, with Phase I [facility] KISHORE MA DO Apr 26, 2021 15:26
--- NOTE | 2021-04-26 16:42 | RAD ---
EXAMINATION: Right ankle radiograph. VIEWS: 3 COMPARISON: None INDICATION:30 years, Female, fall. FINDINGS: No acute fracture, dislocation or subluxation. No bone erosion or periosteal reaction. No soft tissue swelling or joint effusion. IMPRESSION: No acute osseous process. Electronically signed by: aMylin Samuels MD (04/26/2021 4:39 PM) [place]
== END 2021-04-26 16:22 | disposition home or self-care (01) ==
LOC: ER 14:52
DX: S93.401A Sprain of unspecified ligament of right ankle, initial encounter (principal); F41.9 Anxiety disorder, unspecified; G43.909 Migraine, unspecified, not intractable, without status migrainosus; Z98.890 Other specified postprocedural states; X50.9XXA Other and unspecified overexertion or strenuous movements or postures, initial encounter; Y93.89 Activity, other specified; Y92.89 Other specified places as the place of occurrence of the external cause; Y99.8 Other external cause status
CPT/HCPCS: 29515; 73610; 99283

== ENCOUNTER 2021-12-27 14:42 | Emergency (ER) | payer OTHER ==
[~2021-12-27] VITALS: Ht 157.5 cm; Wt 136.1 kg
[~2021-12-27 14:42] MED LIST changes: -CYCL-331 PO; +CYCL10TA19 PO
[2021-12-27] MEDS ORDERED: KETOROLAC 60 MG/2 ML VIAL. IM ONE (15:30)
[2021-12-27 15:56] LABS: BACTERIA,URINE 0 /HPF (0-FEW); CLARITY,URINE HAZY; COLOR,URINE YELLOW; GLUCOSE,URINE NEG (NEG); NITRITE,URINE NEG (NEG); RBC,URINE 0 /HPF (0-2); SQUAMOUS EPITHELIAL CELL,UR OCC /LPF; UROBILINOGEN,URINE 0.2 mg/dL (0.2 mg/dL); WBC,URINE 0 /HPF (0-4)
--- NOTE | 2021-12-27 16:21 | PHYS DOC ---
Past History Past Medical History: Anxiety, Migraines, Seizure Additional Past Medical Histor: pseudoseizure Past Surgical History: Smoking: Non-smoker Alcohol Use: Occasionally Drug Use: Marijuana General Adult EDM: Chief Complaint: GI PROBLEM HPI: HPI: Patient is a 31 year old female who presents with low abdominal pain that began around 0500 this morning. Patient states it is intense in nature and radiates up her abdomen and around to her back. She reports this pain is constant, but worsens in "waves." Patient reports associated nausea and one episode of emesis this morning. Patient also states she has been slightly constipated. Patient denies bloody emesis, bloody stool, dysuria, hematuria. Review of Systems: Review of Systems: Constitutional: Denies fever, chills or generalized weakness Eyes: Denies change in visual acuity, visual field deficits or discharge HENT: Denies ear pain, nasal congestion or sore throat Respiratory: Denies cough or shortness of breath Cardiovascular: Denies chest pain, palpitations or edema GI: See HPI : See HPI Musculoskeletal: Denies back pain or joint pain Integument: Denies rash or other skin lesion Neurologic: Denies headache, focal weakness or sensory changes Current Medications: Current Meds: Current Medications Medications (Trade) Dose Ordered Sig/Jenni Start Time Stop Time Status Last Admin Dose Admin Ketorolac Tromethamine (Toradol Im) 60 mg 1X ONCE 12/27/21 15:30 12/27/21 15:31 DC 12/27/21 15:37 60 MG Allergies: Allergies: Allergies Coded Allergies Type Severity Reaction Last Updated Verified No Known Drug Allergies 11/01/17 No Physical Exam: PE: Constitutional: Obese, no acute distress, non-toxic appearance. HENT: Normocephalic, atraumatic, bilateral external ears normal, nose normal. Eyes: EOMI, conjunctiva normal, no discharge. Neck: Normal range of motion, no stridor. Abdomen: Bowel sounds normal, soft, low abdominal tenderness without rebound or guarding, negative McBurney's point tenderness, negative Rovsing sign, no masses, no pulsatile masses. Skin: Warm, dry, no erythema, no rash. Back: No tenderness, no CVA tenderness. Extremities: No cyanosis, no clubbing, ROM intact, no edema. Neurologic: Alert and oriented x4, no focal deficits noted. Current Patient Data: Labs: Laboratory Tests Test 12/27/21 14:11 12/27/21 15:00 POC Urine HCG, Qualitative hcg negative (Negative) Urine Collection Type Unknown Urine Color Yellow Urine Clarity Hazy Urine pH 6.5 Urine Specific [place] 1.020 Urine Protein Neg (NEG-TRACE) Urine Glucose (UA) Neg mg/dL (NEG) Urine Ketones (Stick) Neg mg/dL (NEG) Urine Blood Neg (NEG) Urine Nitrite Neg (NEG) Urine Bilirubin Neg (NEG) Urine Urobilinogen Dipstick 0.2 mg/dL (0.2 mg/dL) Urine Leukocyte Esterase Neg (NEG) Urine RBC 0 /HPF (0-2) Urine WBC 0 /HPF (0-4) Urine Squamous Epithelial Cells Occ /LPF Urine Bacteria 0 /HPF (0-FEW) Urine Mucus Slight /LPF Vital Signs: Vital Signs Date Time Temp Pulse Resp B/P (MAP) Pulse Ox O2 Delivery O2 Flow Rate FiO2 12/27/21 14:55 98.4 85 20 130/66 (87) 96 Room Air Radiology/Procedures: Radiology/Procedures: PROCEDURE: CT ABDOMEN PELVIS WO CONTRAST CT ABDOMEN+PELVIS WO History: Reason: colicy abd pain / Spl. Instructions: / History: Technique: Noncontrast examination of the abdomen and pelvis. Coronal and sagittal reconstructions were performed. Exposure: One or more of the following individualized dose reduction techniques were utilized for this examination: 1. Automated exposure control 2. Adjustment of the mA and/or kV according to patient size 3. Use of iterative reconstruction technique. Comparison: None Findings: Lower chest: No consolidation or pleural effusion. Abdomen and pelvis: Hepatic steatosis. The spleen, adrenal glands, pancreas and gallbladder are unremarkable. No biliary ductal dilatation. No renal, ureteral or urinary bladder calculus. No hydronephrosis. Normal appendix. No evidence of bowel obstruction. No pathologic ly mphadenopathy. No ascites. Mild nonspecific lateral body wall edema bilaterally. Bones: No pathologic osseous lesions. Impression: 1. No acute abdominal or pelvic pathology. 2. Hepatic steatosis. Electronically signed by: Jacinto Amin DO (12/27/2021 4:34 PM) [facility] Heart Score: C/O Chest Pain: No Course & Med Decision Making: Course & Med Decision Making Pertinent Labs and Imaging studies reviewed. (See chart for details) Patient is a 31-year-old female who presents with low abdominal pain. On initial history and exam, I suspect UTI versus renal stone. Initial labs and imaging were negative for both of these conditions. Labs were then obtained. Patient does have slight white count, but otherwise labs are unremarkable. Patient symptoms are much improved here in the department. She was counseled on supportive treatment measures for viral gastroenteritis. Return precautions were provided. Patient understands and is agreeable to discharge plan. Dragon Disclaimer: Dragon Disclaimer: This electronic medical record was generated, in whole or in part, using a voice recognition dictation system. Departure Departure: Impression: Primary Impression: Gastroenteritis Disposition: HOME / SELF CARE / HOMELESS Condition: STABLE Referrals: SARAI PEACOCK (PCP) Patient Instructions: Abdominal Pain, [id number], Viral Gastroenteritis, [id number] Additional Instructions: EMERGENCY DEPARTMENT GENERAL DISCHARGE INSTRUCTIONS Thank you for coming to [facility] (ED) today and trusting us with you care. We trust that you had a positive experience in our Emergency Department. If you wish to speak to the department management, you may call the director at [phone]. YOUR FOLLOW UP INSTRUCTIONS ARE FOLLOWS: 1. Follow up with your primary care doctor. If you do not have a primary doctor, please ask for a resource list of physicians or clinics that may be able to assist you with follow up care. 2. The emergency provider has interpreted your imaging studies, if any were ordered. The radiology avionics systems integration specialist also reviewed them. If there is a change in the findings, you will be notified in 48 hours when at all possible. 3. If a lab test or culture has been done, your results will be reviewed and you will be notified if you need a change in treatment. 4. Follow instructions verbalized to you and refer to the printouts if needed. ADDITIONAL INSTRUCTIONS AND INFORMATION: 1. Your care today has been supervised by a physician who is specially trained in emergency care. Many problems require more than one evaluation for a complete diagnosis and treatment. We recommend that you schedule your follow up appointment as recommended to ensure complete treatment of you illness or injury. If you are unable to obtain follow up care and continue to have a problem, or if your condition worsens, we recommend that you return to the ED. 2. We are not able to safely determine your condition over the phone nor are we able to give sound medical advice over the phone. For these safety reasons, if you call for medical advice we will ask you to come to the ED for further evaluation. 3. If you have any questions regarding these discharge instructions please call the ED at [phone]. SAFETY INFORMATION: In the interest of safety, wellness, and injury prevention; we encourage you to wear your seat belt, if you smoke; quite smoking, and we encourage family to use a protective helmet for bicycling and other sporting events that present an increased risk for head injury. IF YOUR SYMPTOMS WORSEN OR NEW SYMPTOMS DEVELOP, OR YOU HAVE CONCERNS ABOUT YOUR CONDITION; OR IF YOUR CONDITION WORSENS WHILE YOU ARE WAITING FOR YOUR FOLLOW UP APPOINTMENT; EITHER CONTACT YOUR PRIMARY CARE DOCTOR, THE PHYSICIAN WHOSE NAME AND NUMBER YOU WERE GIVEN, OR RETURN TO THE ED IMMEDIATELY. Scripts Ondansetron (ONDANSETRON ODT) 4 Mg Tab.rapdis 1 TAB PO PRN Q6-8HRS for n/v, #20 TAB Prov: JOHN MENDOZA 12/27/21 JOHN MENDOZA Dec 27, 2021 16:21
--- NOTE | 2021-12-27 16:36 | RAD ---
CT ABDOMEN+PELVIS WO History: Reason: colicy abd pain / Spl. Instructions: / History: Technique: Noncontrast examination of the abdomen and pelvis. Coronal and sagittal reconstructions we re performed. Exposure: One or more of the following individualized dose reduction techniques were utilized for thi s examination: 1. Automated exposure control 2. Adjustment of the mA and/or kV according to patient size 3. Use of iterative reconstruction technique. Comparison: None Findings: Lower chest: No consolidation or pleural effusion. Abdomen and pelvis: Hepatic steatosis. The spleen, adrenal glands, pancreas and gallbladder are unrem arkable. No biliary ductal dilatation. No renal, ureteral or urinary bladder calculus. No hydronephrosis. Normal appendix. No evidence of bowel obstruction. No pathologic lymphadenopathy. No ascites. Mild no nspecific lateral body wall edema bilaterally. Bones: No pathologic osseous lesions. Impression: 1. No acute abdominal or pelvic pathology. 2. Hepatic steatosis. Electronically signed by: Jacinto Amin DO (12/27/2021 4:34 PM) [facility]
[2021-12-27 17:48] LABS: CALCIUM 8.2 mg/dL (8.5-10.1); CREATININE 0.8 mg/dL (0.6-1.0); GFR 84.2; POTASSIUM 3.8 mmol/L (3.5-5.1)
[2021-12-27 17:51] LABS: BASO % 0 % (0-3); EOS # 0.2 x10^3/uL (0.0-0.7); EOS % 1 % (0-3); HEMATOCRIT 34.4 % (36.0-47.0); HEMOGLOBIN 10.6 g/dL (12.0-15.5); LYMPH # 3.2 x10^3/uL (1.0-4.8); LYMPH % 26 % (24-48); MEAN CORPUSCULAR HEMOGLOBIN 24 pg (25-35); MEAN CORPUSCULAR HGB CONC 31 g/dL (31-37); MEAN CORPUSCULAR VOLUME 77 fL (79-100); MONO # 0.7 x10^3/uL (0.0-1.1); MONO % 6 % (0-9); NEUT # 8.3 x10^3uL (1.8-7.7); NEUT % 67 % (31-73); PLATELET COUNT 340 x10^3/uL (140-400); RED BLOOD COUNT 4.49 x10^6/uL (3.50-5.40); WHITE BLOOD COUNT 12.5 x10^3/uL (4.0-11.0)
[2021-12-27 17:54] LABS: ALBUMIN 3.3 g/dL (3.4-5.0); ALBUMIN/GLOBULIN RATIO 0.9 (1.0-1.7); TOTAL BILIRUBIN 0.3 mg/dL (0.2-1.0); TOTAL PROTEIN 6.8 g/dL (6.4-8.2)
[2021-12-27 18:27] VITALS: BP 112/87
[2021-12-27] MEDS ORDERED: ONDA4TAB12 PO (18:49)
== END 2021-12-27 19:10 | disposition home or self-care (01) ==
LOC: ER 14:42
DX: K52.9 Noninfective gastroenteritis and colitis, unspecified (principal); G43.909 Migraine, unspecified, not intractable, without status migrainosus; Z98.890 Other specified postprocedural states
CPT/HCPCS: 36415; 74176; 80053; 81001; 81025; 85025; 96372; 99285; J1885

== ENCOUNTER 2022-03-09 13:00 | Emergency (ER) | payer OTHER ==
[~2022-03-09] VITALS: Ht 157.5 cm; Wt 136.4 kg
[~2022-03-09 13:00] MED LIST changes: +ONDA4TAB12 PO
[2022-03-09] MEDS ORDERED: IV NORMAL SALINE 1,000ML 1,000 ML IV SCH (14:45)
[2022-03-09] MEDS ORDERED: ONDANSETRON PF 4 MG/2 ML VIAL. IVP ONE (14:45)
[2022-03-09] MEDS ORDERED: FAMOTIDINE 20 MG/2 ML VIAL IVP ONE (14:45)
--- NOTE | 2022-03-09 15:17 | PHYS DOC ---
Past History Past Medical History: Anxiety, Migraines, Seizure Additional Past Medical Histor: pseudoseizure (ESA GONCALVES MD) Past Surgical History: (ESA GONCALVES MD) Smoking: Non-smoker Alcohol Use: Occasionally Drug Use: Marijuana (ESA GONCALVES MD) Adult General Chief Complaint Chief Complaint: ABDOMINAL PAIN HPI HPI Patient is a 31 year old female who presents with complaint of abdominal pain. The patient states her symptoms started last night. The patient notes that the pain starts on both sides of her lower abdomen and radiates towards the middle. Also notes that the pain comes up in waves towards the top of her abdomen. States that she has had increased urinary frequency. Denies associated fever, vomiting, chest pain, or shortness of breath. Denies history of similar symptoms. Has had previous history of but no other abdominal surgeries. States that pain became very intense throughout the day today that she came to the emergency department for further evaluation. Notes that the pain is sharp. (ESA GONCALVES MD) Review of Systems Review of Systems Constitutional: Denies fever or chills [] Eyes: Denies change in visual acuity, redness, or eye pain [] HENT: Denies nasal congestion or sore throat [] Respiratory: Denies cough or shortness of breath [] Cardiovascular: Denies chest pain or edema [] GI: Abdominal pain, denies vomiting, bloody stools or diarrhea [] : Increased urinary frequency, denies hematuria, vaginal bleeding, or vaginal discharge [] Musculoskeletal: Denies back pain or joint pain [] Integument: Denies rash or skin lesions [] Neurologic: Denies headache, focal weakness or sensory changes [] All other systems were reviewed and found to be within normal limits, except as documented in this note. (ESA GONCALVES MD) Current Medications Current Medications Current Medications Medications (Trade) Dose Ordered Sig/Jenni Start Time Stop Time Status Last Admin Dose Admin Famotidine (Pepcid Vial) 20 mg 1X ONCE 03/09/22 14:45 03/09/22 14:48 DC Fentanyl Citrate (Fentanyl 2ml Vial) 50 mcg PRN Q15MIN PRN 03/09/22 14:45 03/10/22 14:44 Ondansetron HCl (Zofran) 4 mg 1X ONCE 03/09/22 14:45 03/09/22 14:48 DC Sodium Chloride 1,000 ml @ 1,000 mls/hr Q1H 03/09/22 14:45 03/09/22 15:44 (ESA GONCALVES MD) Allergies Allergies Allergies Coded Allergies Type Severity Reaction Last Updated Verified No Known Drug Allergies 11/01/17 No (ESA GONCALVES MD) Physical Exam Physical Exam Constitutional: Alert, afebrile, appears in moderate discomfort. [] HENT: Normocephalic, atraumatic, bilateral external ears normal, oropharynx moist, no oral exudates, nose normal. [] Eyes: PERRLA, EOMI, conjunctiva normal, no discharge. [] Neck: Normal range of motion, no tenderness, supple, no stridor. [] Cardiovascular:Heart rate regular rhythm, no murmur [] Lungs & Thorax: Bilateral breath sounds clear to auscultation [] Abdomen: Bowel sounds normal, soft, bilateral lower abdominal tenderness to palpation, no guarding or rebound tenderness, no masses, no pulsatile masses. [] Skin: Warm, dry, no erythema, no rash. [] Back: No tenderness, no CVA tenderness. [] Extremities: No tenderness, no cyanosis, no clubbing, ROM intact, no edema. [] Neurologic: Alert and oriented X 3, normal motor function, normal sensory function, no focal deficits noted. [] (ESA GONCALVES MD) Current Patient Data Vital Signs Vital Signs Date Time Temp Pulse Resp B/P (MAP) Pulse Ox O2 Delivery O2 Flow Rate FiO2 03/09/22 15:19 98.3 88 16 126/77 (93) 100 Room Air Lab Results Laboratory Tests Test 03/09/22 14:22 03/09/22 15:05 03/09/22 15:14 Bedside Urine HCG, Qualitative hcg negative Urine Collection Type Unknown Urine Color Yellow Urine Clarity Clear Urine pH 5.5 Urine Specific [place] 1.015 Urine Protein Neg Urine Glucose (UA) Neg mg/dL Urine Ketones (Stick) Neg mg/dL Urine Blood Neg Urine Nitrite Neg Urine Bilirubin Neg Urine Urobilinogen Dipstick 0.2 mg/dL Urine Leukocyte Esterase Neg Urine RBC 0 /HPF Urine WBC Occ /HPF Urine Squamous Epithelial Cells Few /LPF Urine Bacteria 0 /HPF White Blood Count 12.0 x10^3/uL Red Blood Count 4.62 x10^6/uL Hemoglobin 11.1 g/dL Hematocrit 35.2 % Mean Corpuscular Volume 76 fL Mean Corpuscular Hemoglobin 24 pg Mean Corpuscular Hemoglobin Concent 32 g/dL Red Cell Distribution Width 16.4 % Platelet Count 394 x10^3/uL Neutrophils (%) (Auto) 65 % Lymphocytes (%) (Auto) 25 % Monocytes (%) (Auto) 6 % Eosinophils (%) (Auto) 3 % Basophils (%) (Auto) 1 % Neutrophils # (Auto) 7.9 x10^3uL Lymphocytes # (Auto) 3.0 x10^3/uL Monocytes # (Auto) 0.7 x10^3/uL Eosinophils # (Auto) 0.3 x10^3/uL Basophils # (Auto) 0.1 x10^3/uL Sodium Level 136 mmol/L Potassium Level 4.3 mmol/L Chloride Level 101 mmol/L Carbon Dioxide Level 30 mmol/L Anion Gap 5 Blood Urea Nitrogen 10 mg/dL Creatinine 0.8 mg/dL Estimated GFR (Cockcroft-Gault) 84.2 BUN/Creatinine Ratio 13 Glucose Level 92 mg/dL Calcium Level 9.1 mg/dL Total Bilirubin 0.3 mg/dL Aspartate Amino Transf (AST/SGOT) 15 U/L Alanine Aminotransferase (ALT/SGPT) 32 U/L Alkaline Phosphatase 88 U/L Total Protein 7.1 g/dL Albumin 3.3 g/dL Albumin/Globulin Ratio 0.9 Lipase 58 U/L Current Medications Medications (Trade) Dose Ordered Sig/Jenni Route PRN Reason Start Time Stop Time Status Last Admin Dose Admin Fentanyl Citrate (Fentanyl 2ml Vial) 50 mcg PRN Q15MIN PRN IV PAIN GREATER THAN 3/10 03/09/22 14:45 03/10/22 14:44 03/09/22 15:45 Sodium Chloride 1,000 ml @ 1,000 mls/hr Q1H IV 03/09/22 14:45 03/09/22 15:44 DC 03/09/22 15:44 Ondansetron HCl (Zofran) 4 mg 1X ONCE IVP 03/09/22 14:45 03/09/22 14:48 DC 03/09/22 15:44 Famotidine (Pepcid Vial) 20 mg 1X ONCE IVP 03/09/22 14:45 03/09/22 14:48 DC 03/09/22 15:44 (ESA GONCALVES MD) EKG EKG Not performed [] (ESA GONCALVES MD) Radiology/Procedures Radiology/[place] [address] IMAGING REPORT Signed PATIENT: RAEANN HARRIS ACCOUNT: [id number] : 1990 LOCATION: ER AGE: 31 SEX: F EXAM STATUS: REG ER ORD. PHYSICIAN: ESA GONCALVES MD REASON: diffuse abdominal pain since yesterday PROCEDURE: CT ABDOMEN PELVIS WO CONTRAST CT abdomen pelvis without contrast. HISTORY: Diffuse abdominal pain CT abdomen pelvis was done without contrast. Lung bases are clear. There is no effusion. A liver lesion is not identified. There is no calcified gallstone. Spleen is unremarkable. Adrenal glands are normal. Pancreas is normal. There is no mass or hydronephrosis in the kidneys. There is no renal or ureteral calculus. There is no bowel obstruction or ascites. Appendix is normal. Uterus is normal. Enlargement of the left ovary. Right ovary is upper normal in size. There is not evidence of a diverticulitis. IMPRESSION: 1. Prominent left ovary. 2. Right ovary upper normal in size. 3. Normal appendix. 4. No bowel obstruction. 5. No renal or ureteral calculus. PQRS Compliance Statement: One or more of the following individualized dose reduction techniques were utilized for this examination: 1. Automated exposure control 2. Adjustment of the mA and/or kV according to patient size 3. Use of iterative reconstruction technique Electronically signed by: Grayson Abraham MD (03/09/2022 3:58 PM) [facility] DICTATED AND SIGNED BY: GRAYSON ABRAHAM MD DATE: 03/09/22 1555 CC: ESA GONCALVES MD; SARAI PEACOCK ~ [] (ESA GONCALVES MD) Heart Score C/O Chest Pain: No Risk Factors: Risk Factors: DM, Current or recent (<one month) smoker, HTN, HLP, family history of CAD, obesity. Risk Scores: Risk Factors: DM, Current or recent (<one month) smoker, HTN, HLP, family history of CAD, obesity. (ESA GONCALVES MD) Course & Med Decision Making Course & Med Decision Making Pertinent Labs and Imaging studies reviewed. (See chart for details) Patient started on IV fluids, fentanyl, and Zofran in the emergency department. Patient's lab work was reviewed and largely unremarkable. CT imaging was performed. The patient had noted prominence of both ovaries with the left ovary appearing larger than the right. A pelvic ultrasound was ordered for further assessment. At time of signout, ultrasound results are pending. Care of patient signed out to Dr. Zelaya at shift change. [] (ESA GONCALVES MD) Course & Med Decision Making Patient care handed off to me at checkout pending ultrasound. Patient awake alert and oriented no acute distress. Otherwise asymptomatic. Laboratory analysis not concerning. Imaging notable for bilateral ovarian cyst. Discussed all findings with patient. Discussed symptom management at home. Advised to follow-up with primary care physician and/or [employer] as soon as possible to update on ED visit and set up a follow-up. Gave return precautions to the ED. Patient grateful, verbalized understanding and agreed with plan of discharge. (SMITA ZELAYA MD) Dragon Disclaimer Dragon Disclaimer This electronic medical record was generated, in whole or in part, using a voice recognition dictation system. (ESA GONCALVES MD) Departure Departure: Impression: Primary Impression: Abdominal pain Additional Impression: Ovarian cyst Disposition: 01 HOME / SELF CARE / HOMELESS Condition: STABLE Referrals: SARAI PEACOCK (PCP) Patient Instructions: Ovarian Cyst Additional Instructions: Thank you for coming into the emergency department tonight and allowing us to t amalia care of you. Please read the attached information carefully to go over things we discussed. Please continue a Tylenol, ibuprofen and Benadryl regimen at home as needed. Please follow-up with your primary care physician or [employer] as soon as you can update on your ED visit, and your diagnosis of ovarian cyst. Please come back with new or concerning symptoms as discussed. Problem Qualifiers Primary Impression: Abdominal pain Abdominal location: lower abdomen, unspecified Qualified Codes: R10.30 - Lower abdominal pain, unspecified ESA GONCALVES MD March 09, 2022 15:17 SMITA ZELAYA MD March 09, 2022 18:27
[2022-03-09 15:39] LABS: BASO # 0.1 x10^3/uL (0.0-0.2); BASO % 1 % (0-3); EOS # 0.3 x10^3/uL (0.0-0.7); EOS % 3 % (0-3); HEMATOCRIT 35.2 % (36.0-47.0); HEMOGLOBIN 11.1 g/dL (12.0-15.5); LYMPH % 25 % (24-48); MEAN CORPUSCULAR HEMOGLOBIN 24 pg (25-35); MEAN CORPUSCULAR HGB CONC 32 g/dL (31-37); MEAN CORPUSCULAR VOLUME 76 fL (79-100); MONO # 0.7 x10^3/uL (0.0-1.1); MONO % 6 % (0-9); NEUT # 7.9 x10^3uL (1.8-7.7); NEUT % 65 % (31-73); PLATELET COUNT 394 x10^3/uL (140-400); RED BLOOD COUNT 4.62 x10^6/uL (3.50-5.40); RED CELL DISTRIBUTION WIDTH 16.4 % (11.5-14.5)
[2022-03-09 15:48] LABS: CALCIUM 9.1 mg/dL (8.5-10.1); CREATININE 0.8 mg/dL (0.6-1.0); GFR 84.2; POTASSIUM 4.3 mmol/L (3.5-5.1)
[2022-03-09 15:54] LABS: ALBUMIN 3.3 g/dL (3.4-5.0); ALBUMIN/GLOBULIN RATIO 0.9 (1.0-1.7); TOTAL BILIRUBIN 0.3 mg/dL (0.2-1.0); TOTAL PROTEIN 7.1 g/dL (6.4-8.2)
[2022-03-09 15:56] LABS: CLARITY,URINE CLEAR; COLOR,URINE YELLOW; GLUCOSE,URINE NEG (NEG); NITRITE,URINE NEG (NEG); UROBILINOGEN,URINE 0.2 mg/dL (0.2 mg/dL)
[2022-03-09 15:57] LABS: BACTERIA,URINE 0 /HPF (0-FEW); RBC,URINE 0 /HPF (0-2); SQUAMOUS EPITHELIAL CELL,UR FEW /LPF; WBC,URINE OCC /HPF (0-4)
--- NOTE | 2022-03-09 16:01 | RAD ---
CT abdomen pelvis without contrast. HISTORY: Diffuse abdominal pain CT abdomen pelvis was done without contrast. Lung bases are clear. There is no effusion. A liver lesi on is not identified. There is no calcified gallstone. Spleen is unremarkable. Adrenal glands are nor mal. Pancreas is normal. There is no mass or hydronephrosis in the kidneys. There is no renal or uret eral calculus. There is no bowel obstruction or ascites. Appendix is normal. Uterus is normal. Enlarg ement of the left ovary. Right ovary is upper normal in size. There is not evidence of a diverticulit is. IMPRESSION: 1. Prominent left ovary. 2. Right ovary upper normal in size. 3. Normal appendix. 4. No bowel obstruction. 5. No renal or ureteral calculus. PQRS Compliance Statement: One or more of the following individualized dose reduction techniques were utilized for this examinat ion: 1. Automated exposure control 2. Adjustment of the mA and/or kV according to patient size 3. Use of iterative reconstruction technique Electronically signed by: Grayson Abraham MD (03/09/2022 3:58 PM) [facility]
[2022-03-09 18:20] VITALS: BP 141/82
--- NOTE | 2022-03-09 18:20 | RAD ---
US PELVIS COMPLETE Clinical Indication: Reason: Bilateral lower abd/pelvic pain, enlarged ovaries on CT scan / Spl. Inst ructions: / History: Comparison: CT abdomen and pelvis without contrast, earlier same day. TECHNIQUE: Real-time ultrasound imaging of the pelvis using transabdominal window is performed. Findings: Endometrial stripe is normal measuring 4 mm. The uterus measures 10.2 x 5 x 4.7 cm. No focal abnormality of the myometrium. The ovaries demonstrate normal blood flow. The right ovary contains a functional cyst measuring 1.2 b y 1.9 cm. There is a functional cyst of the left ovary measuring 3 x 2 x 1.8 cm. No evidence of adnexal mass. No pelvic free fluid is identified. IMPRESSION: There are small functional cysts of the ovaries. There is normal blood flow in the ovaries. Electronically signed by: Luke Nash MD (03/09/2022 6:17 PM) [facility]
[2022-03-09] MEDS ORDERED: KETOROLAC 15 MG/ML VIAL. IVP ONE (18:30)
[2022-03-09] MEDS ORDERED: KETOROLAC 15 MG/ML VIAL. ONE (18:32)
[2022-03-11 21:06] LABS: CHLAMYDIA PROBE Negative (Negative)
== END 2022-03-09 18:59 | disposition home or self-care (01) ==
LOC: ER 13:00
DX: N83.202 Unspecified ovarian cyst, left side (principal); N83.201 Unspecified ovarian cyst, right side; G43.909 Migraine, unspecified, not intractable, without status migrainosus; Z98.890 Other specified postprocedural states
CPT/HCPCS: 36415; 74176; 76856; 80053; 81001; 81025; 83690; 85025; 87491; 87591; 96361; 96374; 96375; 99284; J1885; J2405; J3010; J3490; J7030; Q0111